=== PATIENT | male | born 1955 | race Caucasian/White ===

== ENCOUNTER 2018-10-05 14:31 | Inpatient (IN) | payer OTHER, MEDICARE ==
--- NOTE | 2018-10-05 14:41 | EDPHY ---
HPI/HX/ROS/PE/MDM Narrative: CHIEF COMPLAINT: Suspected right femur fracture HISTORY OF PRESENT ILLNESS: The patient is a 63 y/o male arriving via EMS complaining of right leg injury secondary to a fall off a ladder this afternoon. He was 3-4 steps up on a ladder when the ladder slipped. He fell towards his right side and thinks his right leg was on the outside of the ladder when his body weight hit the ladder. EMS applied a traction splint, which improved patient's pain. He did not receive any pain medications en route and reports his pain is manageable. He denies striking his head, loss of consciousness, neck or back pain, weakness, paresthesias, pelvis pain, abdominal pain, or other extremity injuries. He does not use any anticoagulants and is typically healthy. Last PO intake around 09:00 this morning. REVIEW OF SYSTEMS: A 10 point review of systems was performed and is negative with the exception of the elements mentioned in the history of present illness. Past medical history: Asthma - albuterol, Flovent Past surgical history: Noncontributory Family history: Noncontributory Social history: at bedside. Lives in [place]. Nonsmoker. No current PCP. Adult Physical: General Appearance: Alert, no acute distress. Vital signs reviewed. Head: Normocephalic atraumatic. Eyes: Pupils equal and round, no conjunctival injection, no discharge. ENT, Mouth: Mucous membranes are moist, no oropharyngeal erythema or edema. Neck: Nontender to palpation of the cervical spine in the midline. No pain with active range of motion of his neck. Respiratory: Lungs are clear to auscultation; no wheezes, rales, or rhonchi. Cardiovascular: Regular rate and rhythm; no murmur, rub, or gallop. Gastrointestinal: Abdomen is soft and non tender, no masses or organomegaly. Skin: Warm and dry, no rashes, normal color. Back: Nontender to palpation over the thoracolumbar spine. Extremities: Right leg in traction splint. Under proximal to mid femur with no obvious deformity. Two superficial lacerations to dorsum of right hand measuring 1.5cm, 0.75cm. No lower extremity edema, no calf tenderness or swelling. Pulses: Strong dorsalis pedis pulses bilaterally. Neurological: Alert and oriented. Right leg held in traction, otherwise moving all extremities easily and equally. CHIKIS. EOMI. Tongue midline. Facial expressions symmetric. 5/5 bilateral upper extremity and left lower extremity strength. Sensation intact to light touch over all 4 extremities. Psychiatric: Normal affect. ED Course: This is a healthy 63 y/o male who presents with an isolated injury to his right femur secondary to a short fall off a ladder this afternoon. He describes his right leg getting caught underneath the ladder then his body weight landing on the ladder. He is surprisingly comfortable on exam with his right leg held in traction. He is neurovascularly intact. Small superficial lacerations noted to dorsum of right hand. Plan for right femur x-ray and pain management as needed. He has declined pain medication at this time. X-ray shows proximal femur fracture. Pre-op labs, EKG, and chest x-ray ordered. 1505: Consulted with GIA Stewart for Dr. Escobar, orthopedist. She recommends admission to the hospitalist for medical clearance and Mahad hose and has no set surgical plan at this time. 1523: Consulted with hospitalist service. Patient will need to be either ortho admit or trauma admit. 1528: Consulted with Dr. Escobar, orthopedist. He will not admit patient. 1531: Consulted with Dr. Guillaume, trauma surgeon. He will admit patient if needed. 1535: Spoke with Dr. Pagan, hospitalist. He will assess patient in the ED and admit so patient can go to surgery. 1540: Pat reports they will take patient to surgery as soon as he is cleared. - Data Points Imaging Results: Imaging Impressions Femur X-Ray 10/05/18 14:40 Impression: Comminuted oblique intertrochanteric and subtrochanteric fractures of the proximal right femur. Chest X-Ray 10/05/18 15:07 Impression: 1. No acute pulmonary disease. 2. Consider chest, two views when the patient's medical condition permits. Imaging: I viewed and interpreted images myself Laboratory Results: Laboratory Results 10/05/18 15:30 10/05/18 15:30 10/05/18 10/05/18 10/05/18 15:30 15:30 15:30 WBC RBC Hgb Cancelled Hct Cancelled MCV MCH MCHC RDW Plt Count MPV Neut % (Auto) Lymph % (Auto) [place] % (Auto) Eos % (Auto) Baso % (Auto) Nucleat RBC Rel Count Absolute Neuts (auto) Absolute Lymphs (auto) Absolute Monos (auto) Absolute Eos (auto) Absolute Basos (auto) Absolute Nucleated RBC Immature Gran % Immature Gran # PT 13.9 SEC SEC (12.0-15.0) INR 1.05 (0.83-1.16) Sodium Potassium Chloride Carbon Dioxide Anion Gap BUN Creatinine Estimated GFR Glucose Calcium 25-OH Vitamin D Total 24.9 ng/mL L ng/mL (30.0-100.0) 10/05/18 10/05/18 15:30 15:30 WBC 10.91 10^3/uL H 10^3/uL (3.80-9.50) RBC 4.91 10^6/uL 10^6/uL (4.40-6.38) Hgb 15.4 g/dL g/dL (13.7-17.5) Hct 46.2 % % (40.0-51.0) MCV 94.1 fL fL (81.5-99.8) MCH 31.4 pg pg (27.9-34.1) MCHC 33.3 g/dL g/dL (32.4-36.7) RDW 12.2 % % (11.5-15.2) Plt Count 180 10^3/uL 10^3/uL (150-400) MPV 10.6 fL fL (8.7-11.7) Neut % (Auto) 81.9 % H % (39.3-74.2) Lymph % (Auto) 12.1 % L % (15.0-45.0) [place] % (Auto) 5.0 % % (4.5-13.0) Eos % (Auto) 0.5 % L % (0.6-7.6) Baso % (Auto) 0.2 % L % (0.3-1.7) Nucleat RBC Rel Count 0.0 % % (0.0-0.2) Absolute Neuts (auto) 8.93 10^3/uL H 10^3/uL (1.70-6.50) Absolute Lymphs (auto) 1.32 10^3/uL 10^3/uL (1.00-3.00) Absolute Monos (auto) 0.55 10^3/uL 10^3/uL (0.30-0.80) Absolute Eos (auto) 0.06 10^3/uL 10^3/uL (0.03-0.40) Absolute Basos (auto) 0.02 10^3/uL 10^3/uL (0.02-0.10) Absolute Nucleated RBC 0.00 10^3/uL 10^3/uL (0-0.01) Immature Gran % 0.3 % % (0.0-1.1) Immature Gran # 0.03 10^3/uL 10^3/uL (0.00-0.10) PT INR Sodium 137 mEq/L mEq/L (135-145) Potassium 4.0 mEq/L mEq/L (3.5-5.2) Chloride 108 mEq/L mEq/L (97-110) Carbon Dioxide 22 mEq/l mEq/l (22-31) Anion Gap 7 mEq/L mEq/L (6-14) BUN 19 mg/dL mg/dL (7-23) Creatinine 0.8 mg/dL mg/dL (0.7-1.3) Estimated GFR > 60 Glucose 99 mg/dL mg/dL (70-100) Calcium 8.8 mg/dL mg/dL (8.5-10.4) 25-OH Vitamin D Total Medications Given: Morphine Sulfate (Morphine) 1 - 2 mg IVP Q1HR PRN PRN Reason: Pain, Severe Unable to Take PO Stop: 10/15/18 15:34 Last Admin: 10/05/18 15:47 Dose: 2 mg Discontinued Medications Bupivacaine HCl (Sensorcaine 0.25% Sdv) Confirm Administered Dose 30 ml .ROUTE .STK-MED ONE Stop: 10/05/18 16:35 Last Admin: 10/05/18 18:37 Dose: 30 ml Chlorhexidine Gluconate (Hibiclens) Confirm Administered Dose 1 btl TP .STK-MED ONE Stop: 10/05/18 16:35 Last Admin: 10/05/18 18:38 Dose: Not Given Epinephrine HCl (Epinephrine) Confirm Administered Dose 1 mg .ROUTE .STK-MED ONE Stop: 10/05/18 16:35 Last Admin: 10/05/18 18:38 Dose: 0.1 mg Cefazolin Sodium/Dextrose (Ancef) 100 mls @ 200 mls/hr IV ONCALL ONE PRN Reason: Protocol Stop: 10/05/18 15:38 Last Admin: 10/05/18 17:52 Dose: 100 mls Midazolam HCl (Versed) 2 mg IVP ONCALL ONE Stop: 10/05/18 17:24 Last Admin: 10/05/18 17:36 Dose: 2 mg General Time Seen by Provider: 10/05/18 14:34 Initial Vital Signs: Initial Vital Signs Temperature (C) 36.6 C 10/05/18 14:39 Heart Rate 67 10/05/18 14:39 Respiratory Rate 16 10/05/18 14:39 Blood Pressure 152/96 H 10/05/18 14:39 O2 Sat (%) 98 10/05/18 14:39 O2 Delivery Mode Room Air Allergies/Adverse Reactions: Penicillins Allergy (Verified 10/05/18 15:51) Facial swelling Home Medications: Medication Instructions Recorded Albuterol [Proventil Inhaler HFA 1 - 2 puffs IH Q6HRS PRN 10/05/18 (*)] Fluticasone Hfa 110 Mcg [Flovent 2 puffs IH DAILY@1900 10/05/18 110 MCG Hfa MDI (*)] Ibuprofen [Motrin (*)] 400 - 600 mg PO BID PRN 10/05/18 Naproxen Sodium [Aleve 220 MG (*)] 220 mg PO DAILY PRN 10/05/18 Departure - Departure Disposition: [facility] In[facility] Acute Clinical Impression: Femur fracture, right Qualifiers: Encounter type: initial encounter Femur location: intertrochanteric Fracture type: closed Fracture alignment: nondisplaced Qualified Code(s): S72.144A - Nondisplaced intertrochanteric fracture of right femur, initial encounter for closed fracture Condition: Fair Report Scribed for: Adrianna Leyva Report Scribed by: Xi Sandhu Date of Report: 10/05/18 Time of Report: 14:41 Physician Review and Approval Statement: Portions of this note were transcribed by the medical claims representative. I, Dr. Adrianna Leyva, personally performed the history , physical exam, and medical decision-making; and confirmed the accuracy of the information in the transcribed note.
[2018-10-05] MEDS ORDERED: ceFAZolin 2 GM/DEXTROSE 100 ML IV ONE (15:09)
[2018-10-05] MEDS ORDERED: ONDANSETRON DISINTEGRATING 4 MG TAB PO PRN (15:35)
[2018-10-05] MEDS ORDERED: ONDANSETRON 4 MG/2 ML VIAL IVP PRN ×2 (15:35→19:54)
[2018-10-05] MEDS ORDERED: oxyCODONE IR 5 MG TAB PO PRN (15:35)
[2018-10-05] MEDS ORDERED: ACETAMINOPHEN 325 MG TAB PO PRN (15:35)
--- NOTE | 2018-10-05 15:44 | PDGENHP ---
History and Physical - Chief Complaint fall - History of Present Illness 63yo M with a history of asthma presents after fall from ladder this afternoon. He was 3-4 steps up on the ladder when the ladder slipped and fell on his right leg. He was unable to bear weight afterwards. Denies LOC, neck/back pain, or distal weakness/numbness. He is not anticoagulated. EMS arrived and applied traction splint. He did not receive any medications en route. Pain is currently manageable. Denies any recent chest pain, dyspnea on exertion, leg swelling, orthopnea, or syncopal episodes. He is otherwise healthy. In the ED, x-rays show proximal right femur fracture. Dr Escobar of orthopedic surgery was consulted. History Information - Allergies/Home Medication List Allergies/Adverse Reactions: Penicillins Allergy (Verified 10/05/18 15:51) Facial swelling Home Medications: Albuterol [Proventil Inhaler HFA (*)] 1 - 2 puffs IH Q6HRS PRN 10/05/18 [Last Taken 10/04/18] Fluticasone Hfa 110 Mcg [Flovent 110 MCG Hfa MDI (*)] 2 puffs IH DAILY@1900 11/18 [Last Taken 10/04/18] Ibuprofen [Motrin (*)] 400 - 600 mg PO BID PRN 10/05/18 [Last Taken 10/05/18 02: 30] Naproxen Sodium [Aleve 220 MG (*)] 220 mg PO DAILY PRN 10/05/18 [Last Taken 10/21] I have personally reviewed and updated: family history, medical history, social history, surgical history - Past Medical History Additional medical history: asthma - Surgical History Reports: no pertinent surgical hx - Family History Positive for: non-pertinent - Social History Smoking Status: Never smoked Alcohol Use: Rarely Drug Use: None Additional social history: Lives in [place] with who is at bedside with son Review of Systems Review of Systems: ROS: 10pt was reviewed & negative except for what was stated in HPI & below Physical Exam Physical Exam: Temp Pulse Resp BP Pulse Ox 36.6 C 67 16 152/96 H 98 10/05/18 14:39 10/05/18 14:39 10/05/18 14:39 10/05/18 14:39 10/05/18 14:39 Constitutional: no apparent distress, appears nourished, not in pain Eyes: PERRL, anicteric sclera, EOMI Ears, Nose, Mouth, Throat: moist mucous membranes, hearing normal, ears appear normal, no oral mucosal ulcers Cardiovascular: regular rate and rhythym, no murmur, rub, or gallop, No edema Respiratory: no respiratory distress, no rales or rhonchi, clear to auscultation Gastrointestinal: normoactive bowel sounds, soft, non-tender abdomen, no palpable masses Genitourinary: no bladder fullness, no bladder tenderness Skin: warm, normal color, no rashes or abrasions, no fluctuance, no induration, No mottled Musculoskeletal: other (right leg externally rotated) Neurologic: AAOx3 Psychiatric: interacting appropriately, not anxious, not encephalopathic, thought process linear Lab Data & Imaging Review 10/05/18 15:30 10/05/18 15:30 Visualized and Interpreted imaging results: Yes Interpretation: Right femur x-ray: proximal femur fracture (interp by me) Assessment & Plan Assessment: 63yo M with a history of asthma presents after fall from ladder this afternoon found to have right femur fracture. Plan: 1. Right femur fracture - Dr Wills of orthopedic surgery has been consulted, planning on ORIF this evening - Pain management: APAP, oxycodone, morphine PRN with bowel regimen - PT/OT after surgery - Will check vitamin D level 2. Medical clearance: RCRI score of 0 indicating low risk (3.9%) of major cardiac event. Pre-op ECG within normal limits. - No further cardiopulmonary risk stratification warranted - There are no other active medical issues that would preclude him from surgical intervention 3. Asthma: Not exacerbated - Continue home inhalers VTE ppx: SCDs. High risk of DVT, start pharmacologic ppx with Lovenox once cleared by surgery team Diet: NPO Code: full Dispo: Admit as inpatient
[2018-10-05] MEDS ORDERED: MAGNESIUM HYDROXIDE 30 ML UDCUP PO PRN (15:49)
[2018-10-05] MEDS ORDERED: POLYETHYLENE GLYCOL 3350 17 GM PKT PO PRN (15:49)
[2018-10-05 15:54] LABS: PLATELET COUNT 180 10^3/uL (150-400)
[2018-10-05] MEDS ORDERED: ALBUTEROL IH PRN (15:58)
--- NOTE | 2018-10-05 16:01 | PDCONSULT ---
<Maria Luz Matthews S - Last Filed: 10/05/18 23:14> [employer] Note: CHIEF COMPLAINT: Right hip fracture SUPERVISING PHYSICIAN: Dr. Jermaine Escobar. HISTORY OF PRESENT ILLNESS: The patient is a 63 y/o RHD male who arrived via EMS complaining of right leg injury secondary to a fall off a ladder this afternoon. He was 3-4 steps up on a ladder when the ladder slipped. He fell towards his right side and thinks his right leg was on the outside of the ladder when his body weight hit the ladder. EMS applied a traction splint, which improved patient's pain, but I have now taken down in preparation for right hip ORIF. His pain is being controlled well in ED at this time and he is able to respond appropriately to questions and command. Denies h/o previous injury, numbness/tingling, worsening pain, skin breakthrough, change in heat/ color of extremity or around hip, cramping in his calves or ankles. He denies striking his head, loss of consciousness, neck or back pain, pelvis pain, abdominal pain, or other extremity injuries. He does not use any anticoagulants regularly and denies h/o blood clots, bleeding disorders or VT. NPO: 09:00 on 10/05/2018. POA: Self. FULL CODE. REVIEW OF SYSTEMS: A 10 point review of systems was performed and is negative with the exception of the elements mentioned in the history of present illness. MEDICAL HISTORY: Asthma. PAST SURGICAL HISTORY: None. FAMILY HISTORY: Denies h/o blood clots, bleeding disorders, CVD, cancer. SOCIAL HISTORY: at bedside. Lives in [place]. Nonsmoker, rare EtOH. No current PCP. ALLERGIES: Penicillins Allergy (Verified 10/05/18 14:45) MEDICATIONS: Flovent, Ventolin. PHYSICAL EXAMINATION: GENERAL: No acute distress, cooperative, and pleasant. Able to respond appropriately to questions and commands. HEENT: NC/AT. EOMI. PERRLA. Ears and nares patent without discharge. Oropharynx clear. NECK: NTTP, FROM, supple. Negative Lhermitte's and Spurling's. No lymphadenopathy. CV: Non-labored breathing, no diaphoresis. SPINE: NTTP throughout and negative pelvis squeeze test. MUSCULOSKELETAL: Focalized exam of b/l lower extremities: Unable to bear weight to RLE. Leg is externally rotated for comfort. Skin intact throughout; all compartments soft. TTP over right hip otherwise NTTP throughout. Limited ROM of right hip secondary to severe pain to patient. FROM distally with 5/5 strength present distally. Calves soft/supple and NTTP b/l with negative b/l Homans. Brisk cap refill b/l. Negative passive stretch b/l. DNVI b/l with no focal deficits noted. Negative pelvic squeeze test. SCDs and JASON hose not yet present to patient. SKIN: Please see dictation above. No other ecchymosis, erythema, calor, or edema. No other rashes or lesions. NEUROLOGIC: Nonfocal. No deficits. C5 - T1 and L2 - S1 intact. DTRs 2+ x 4 exts with symmetry. No clonus. SECONDARY SURVEY: Negative except for as stated above. IMAGIN views of right hip show a minimally displaced subtrochanteric hip fracture. Initial Vital Signs: Temperature (C) 36.6 C 10/05/18 14:39 Heart Rate 67 10/05/18 14:39 Respiratory Rate 16 10/05/18 14:39 Blood Pressure 152/96 H 10/05/18 14:39 O2 Sat (%) 98 10/05/18 14:39 O2 Delivery Mode Room Air ASSESSMENT/PLAN: At this time patients physical exam findings and imaging were explained at length to him and his family. At this time recommend emergent ORIF of right hip. Informed consent will be obtained by Dr. Jermaine Escobar. NWB. Placed out of traction. Knee high JASON hose and SCDs as well as IS. Will follow reccs per IM regarding chemoprophylaxis post-operatively. Will schedule surgery for earliest convenience pending clearance from IM. Advised to watch for worsening pain, abnormal numbness, tingling, change in heat /color of extremity, worsening change in ROM or strength, cramping in his calves /ankles, cough, congestion, chest pain, dyspnea, SOB and to seek immediate medical attention. Patient seen/discussed in conjunction with Dr. Escobar. <Jermaine Escobar - Last Filed: 10/06/18 10:26> [employer] Note: History and physical exam performed independently by me, in addition to my PA. See note above. Mr Flannery unfortunately has a traumatic, closed R proximal femur fracture, pertrochanteric with significant subtrochanteric and intertrochanteric extension, highly unstable and displaced. We will proceed to the OR as expeditiously as possible for ORIF and long Gamma nail placement. The R/B/A have been discussed and all questions have been answered. The complexity of this fracture pattern has been explained to patient and family. A signed and witnessed informed consent has been obtained by me.
[2018-10-05 16:25] LABS: INR 1.05 (0.83-1.16); PROTIME(PATIENT) 13.9 SEC (12.0-15.0)
[2018-10-05] MEDS ORDERED: CHLORHEXIDINE GLUC HIBICLENS 118 ML BTL TP ONE (16:34)
[2018-10-05] MEDS ORDERED: EPINEPHrine 1 MG/ML INJ ONE (16:34)
[2018-10-05] MEDS ORDERED: BUPIVACAINE 0.25% 30 ML SDV ONE (16:34)
--- NOTE | 2018-10-05 17:22 | PDANEPAE ---
ANE History of Present Illness Right hip fracture ANE Past Medical History - Cardiovascular History Hx Hypertension: No Hx Arrhythmias: No Hx Coronary Artery / Peripheral Vascular Disease: No - Pulmonary History Hx Asthma/Reactive Airway Disease: Yes Hx Sleep Apnea: No - Endocrine History Hx Diabetes: No ANE Review of Systems Review of Systems: ANE Patient History - Allergies Allergies/Adverse Reactions: Penicillins Allergy (Verified 10/05/18 15:51) Facial swelling - Home Medications Home medications: home medication list seen and reviewed Home Medications: Albuterol [Proventil Inhaler HFA (*)] 1 - 2 puffs IH Q6HRS PRN 10/05/18 [Last Taken 10/04/18] Fluticasone Hfa 110 Mcg [Flovent 110 MCG Hfa MDI (*)] 2 puffs IH DAILY@1900 11/18 [Last Taken 10/04/18] Ibuprofen [Motrin (*)] 400 - 600 mg PO BID PRN 10/05/18 [Last Taken 10/05/18 02: 30] Naproxen Sodium [Aleve 220 MG (*)] 220 mg PO DAILY PRN 10/05/18 [Last Taken 10/21] - NPO status NPO Status: no food or drink >8 hours NPO Since - Liquids (Date): 10/05/18 NPO Since - Liquids (Time): 09:00 NPO Since - Solids (Date): 10/05/18 NPO Since - Solids (Time): 09:00 - Anes Hx Anes Hx: no prior problems (Only [place] as child) - Smoking Hx Smoking Status: Never smoked - Alcohol Use Alcohol Use: Rarely ANE Labs/Vital Signs - Labs Result Diagrams: 10/05/18 15:30 10/05/18 15:30 - Vital Signs Blood Pressure: 136/77 Heart Rate: 63 Respiratory Rate: 16 O2 Sat (%): 94 Height: 187.96 cm Weight: 99.79 kg ANE Physical Exam - Airway Neck exam: FROM Mallampati Score: Class 2 Mouth exam: normal dental/mouth exam - Pulmonary Pulmonary: no respiratory distress - Cardiovascular Cardiovascular: regular rate and rhythym - ASA Status ASA Status: II, E ANE Anesthesia Plan Anesthesia Plan: general endotracheal anesthesia
[2018-10-05] MEDS ORDERED: MIDAZOLAM 2 MG/2 ML VIAL IVP ONE (17:23)
[2018-10-05] MEDS ORDERED: MIDAZOLAM 2 MG/2 ML VIAL ONE (17:25)
[2018-10-05] MEDS ORDERED: ROCURONIUM 50 MG/5 ML VIAL ONE ×3 (17:37→19:22)
[2018-10-05] MEDS ORDERED: fentaNYL 100 MCG/2 ML INJ ONE ×3 (17:38→21:25)
[2018-10-05] MEDS ORDERED: PROPOFOL 200 MG/20 ML VIAL ONE (17:38)
[2018-10-05] MEDS ORDERED: LIDOCAINE 2% 5 ML SDV ONE (17:38)
[2018-10-05] MEDS ORDERED: PHENYLEPHRINE HCL 100 MCG/ML SYR ONE ×2 (18:00→19:31)
[2018-10-05] MEDS ORDERED: GLYCOPYRROLATE 0.2 MG/1 ML VIAL ONE (18:06)
[2018-10-05] MEDS ORDERED: DEXAMETHASONE 4 MG/ML VIAL ONE (18:06)
[2018-10-05] MEDS ORDERED: fentaNYL 100 MCG/2 ML INJ IVP PRN (19:54)
[2018-10-05] MEDS ORDERED: NALOXONE HCL 0.4 MG/ML INJ IVP PRN (19:54)
[2018-10-05] MEDS ORDERED: PROMETHAZINE HCL 25 MG/ML INJ IVP PRN ×2 (19:54→22:31)
--- NOTE | 2018-10-05 21:00 | CPEKG ---
Test Reason : OPEN Blood Pressure : / mmHG Vent. Rate : 070 BPM Atrial Rate : 070 BPM P-R Int : 190 ms QRS Dur : 097 ms QT Int : 418 ms P-R-T Axes : 062 081 037 degrees QTc Int : 452 ms Sinus rhythm Atrial premature complex Borderline right axis deviation Confirmed by Charissa Enriquez ([id number]) on 10/05/2018 8:59:46 PM Referred By: CHARISSA ENRIQUEZ Confirmed By:Charissa Enriquez
[2018-10-05] MEDS ORDERED: ONDANSETRON 4 MG/2 ML VIAL ONE (21:08)
[2018-10-05] MEDS ORDERED: SUGAMMADEX SODIUM 200 MG/2 ML VIAL IVP ONE (21:48)
--- NOTE | 2018-10-05 22:09 | POSTANESTH ---
Post Anesthetic Evaluation Cardiovascular Status: Similar to Pre-Op Cond Respiratory Status: Similar to Pre-op Cond. Level of Consciousness/Mental Status: Alert and Oriented, Mildly Sleepy, Arousable Pain Control: Adequate, Prn Tx Ordered Nausea/Vomiting Control: Adequate, Prn Tx Ordered Complications Possibly Related to Anesthesia: None Noted
[2018-10-05] MEDS ORDERED: HYDROmorphONE/DILAUDID 2 MG/ML INJ ONE (22:26)
[2018-10-05] MEDS: HYDROmorphONE/DILAUDID 2 MG/ML INJ IVP PRN ×2 (22:28→22:36)
[2018-10-05] MEDS ORDERED: diphenhydrAMINE 25 MG CAP PO PRN (22:31)
[2018-10-05] MEDS ORDERED: DIPHENOXYLATE/ATROPINE LOMOTIL 1 TAB PO PRN (22:31)
[2018-10-05] MEDS ORDERED: TEMAZEPAM 15 MG CAP PO PRN (22:31)
[2018-10-05] MEDS ORDERED: METOCLOPRAMIDE 10 MG/2 ML VIAL IVP PRN (22:31)
--- NOTE | 2018-10-05 22:37 | POSTOPPROG ---
Post Op Note Date of Operation: 10/05/18 Surgeon: Jermaine Escobar Product Safety Tester: MILTON Stallworth Anesthesiologist: Dr. Baker Anesthesia: GET(General Endotracheal) Pre-op Diagnosis: Right femur subtrochanteric hip fracture Post-op Diagnosis: Right femur subtrochanteric hip fracture Indication: Right femur subtrochanteric hip fracture Procedure: Right hip gamma nail Findings: Right femur subtrochanteric hip fracture Inf/Abcess present in the surg proc area at time of surgery?: No Depth: Deep Incisional (Fascial) EBL: 100-500 Complications: None.
[2018-10-05] MEDS ORDERED: LR 1,000 ML IV SCH (23:00)
[2018-10-06] MEDS: FLUTICASONE HFA 110 MCG MDI IH SCH ×2 (01:06→19:42)
[2018-10-06] MEDS: ceFAZolin 2 GM/DEXTROSE 100 ML IV SCH ×2 (02:07→11:19)
[2018-10-06 04:54] LABS: PLATELET COUNT 145 10^3/uL (150-400)
--- NOTE | 2018-10-06 06:20 | GOP ---
[f rep st] OPERATIVE REPORT DATE OF OPERATION: 10/05/2018 SURGEON: Jermaine Escobar MD [employer] OPERATOR: Maria Luz Matthews PA-C. ANESTHESIA: General ANESTHESIOLOGIST: Dr. Baker. PREOPERATIVE DIAGNOSIS: Closed right proximal femur, comminuted high-energy and unstable fracture, p ertrochanteric with subtrochanteric and intertrochanteric extension. POSTOPERATIVE DIAGNOSIS: Closed right proximal femur, comminuted high-energy and unstable fracture, pertrochanteric with subtrochanteric and intertrochanteric extension. PROCEDURE PERFORMED: Open reduction, internal fixation of right proximal femur fractures with long g anaya nail. FINDINGS: Highly unstable and segmental right proximal femur fracture, pertrochanteric hip fracture with intertrochanteric and subtrochanteric extension and segmental fracture morphology. Bone quality was without any signs of osteopenia or osteoporosis. ESTIMATED BLOOD LOSS: 300 cc. INDICATIONS: The patient is a 63-year-old male who suffered a fall from a ladder earlier today. He was brought into [facility] after severe pain and his inability to bear weight at home at the site of [facility] ur. The patient was found to have a right proximal femur fracture as listed above. He was seen by Medicine and cleared for surgery. The risks, benefits, and alternatives were discussed with the jing ent. All of his questions were answered prior to surgery. He provided a signed witnessed informed c onsent which was placed in his chart. Please see history and physical for additional information. DESCRIPTION OF PROCEDURE: The patient was identified in the preoperative holding area and his right hip was signed as the operative site. The patient was confirmed and left lower extremity SCDs. He w as taken back to the operating room, intubated on the gurney. He was then transferred over to the fr acture table with great care taken to protect the right hip. Standard well-padded peroneal post was placed between the legs. Right upper extremity was tucked across his chest. Left upper extremity wa s placed in a well-padded arm board. Abundant padding was placed around the right elbow and wrist to protect the ulnar nerve as well as peripheral nerves throughout the wrist. Both lower extremities w ere positioned with the standard fracture table using the foam padded boots. Left lower extremity wa s scissored approximately 15 degrees hip extension and right hip was flexed approximately 15 degrees. Right thigh was then prepped and draped in the usual sterile manner. Large C-arm was utilized duri ng the surgery which was all sterilely prepped and draped for the surgery. Initial focus was on multiple attempts at achieving an appropriate reduction simply with the fracture table using traction and rotation of the lower extremity. A crutch was utilized in order to attempt to reduce the significantly posteriorly displaced proximal femur. This was displaced greater than 1 00% posteriorly. There was a large segmental piece along the lateral cortex at the proximal femur th at was also fractured and displaced. There was additional fracture extension up into the intertrocha nteric area causing the fracture to be highly unstable. Reduction was not possible with closed means . As a result, a lateral incision was made after anesthetizing the skin with 0.25% Marcaine with epi nephrine. A full-thickness dermal incision was made over a length of approximately 10 cm and careful ly dissection was taken down through the subcutaneous fat. The IT band was identified and divided in parallel with its fibers. The vastus lateralis fascia was divided and then the muscle was swept ant eriorly and posteriorly in order to access the lateral femoral cortex. With my finger through a smal l window I was able to palpate the fracture and better understand the displacement. The proximal fem ur shaft was displaced posteriorly and medially with rotation. The lateral segmental piece was displ aced laterally. The intertrochanteric and neck portion was displaced anteriorly. Given the above, p rovisional fixation was achieved with placement of Mayo as well as a Verbrugge clamp and turkey-claw type clamp. Once an acceptable reduction was achieved, which was extremely difficult, the nailing po rtion of the case was performed. Great care was taken to limit any unnecessary stripping of bone and instead the Mayo and clamps were placed through and around the muscle as well as possible to avoid s oft tissue stripping. With meticulous care to maintain the reduction with the provisional tools, my metal moulder's assistant was essential for holding the reduction as I performed the nailing portion of the case. A 4 cm incision was placed proximal to the greater trochanter. Again, full-thickness dermal incision was made after anesthetizing the skin. Careful dissection was taken down through the subcutaneous f at. The tip of the greater trochanter was palpated and a small incision in the fascia over the troch anter was utilized in order to place a guidewire. The guidewire was placed in the appropriate center ed position at the tip of the greater trochanter and advanced down centrally within the femoral canal across the fracture site and down beyond the subtroch fracture extension. Once this was in place, jose bartholomew one-step reamer from the [place] Gamma nail was used to open up the proximal portal for the nail. After the proximal femoral canal was opened, a standard ball-tip guidewire was placed down within th e intramedullary canal across the fracture site and down to the distal femoral metaphysis in a center ed position. Measurement was taken and 420 mm was the appropriate length for this patient. Reaming was performed over the guidewire up to a size 13. An 11 x 420 mm nail with 130 degree neck angle was then selected as the appropriate nail for the patient. This was placed over the guidewire and malleted down into the appropriate position and rotation. The guidewire was then removed. The compression screw portio n of the nail was then performed. The lateral guide was placed down on bone, i.e., lateral femoral cortex. The prior incision used for reduction was appropriate for placing this compression screw. The guidewire was then advanced up ac ross the fracture site and centered through the neck and femoral head. This was advanced to the appr opriate depth. This was then over drilled to a length of 110 mm. A 10.5 mm x 110 mm compression scr ew was then placed over the guidewire and screwed down to the appropriate depth. Tip apex distance w as appropriate. A set screw was then placed, locking the compression screw in rotation and given the highly complex and unstable nature of the fracture, I held the compression screw in a static positio n. The jig and cannulas were then removed from the nail proximally. Finalized images were taken wit h the large C-arm to confirm appropriate reduction as well as placement of all hardware. Once this w as completed, the distal interlock was performed using standard perfect [place] technique. A 5 x 45 m m dynamic distal femoral locking screw was placed down the metadiaphysis of the femur. Again, in thi s case and location a small 7 or 8 mm incision was made. Careful spreading down to bone was utilized with mosquito clamp. The screw was placed without difficulty. Finalized images were taken througho ut to confirm maintenance of reduction as well as location of the hardware. Images were taken withou t traction to confirm again appropriate alignment. The wounds were then copiously irrigated with perfecto rile saline and closure was begun. The deep fascial layer including the IT band was closed with multiple interrupted #1 Ethibond sutures . The fat space of both of the proximal incisions were closed with 2-0 Vicryl sutures. 2-0 Vicryl s utures were used to close the deep dermal layer at all incisions. Abraham were used to formally clos e the skin. Sterile postop surgical dressings were applied. The patient was taken out of all positi oning devices on the fracture table. He was then extubated on his gurney and transferred to the PACU in stable condition. TOURNIQUET TIME: None. DRAINS: None. IMPLANTS: Ricky long right gamma nail, 130 degree neck angle, 11 x 420 mm. A 10.5 x 110 mm compre ssion screw. A 5 x 45 mm distal locking screw. The distal locking screw was placed in a dynamic pos ition. The compression screw was compressed with the implant and jig and then once this was compress ed appropriately, it was set in a static position using standard gamma nail technique. COMPLICATIONS: None. DISPOSITION: The patient was extubated and transferred to PACU in stable condition. /[id number]/MODL
[2018-10-06] MEDS: SENNOSIDES/DOCUSATE SODIUM TAB PO SCH ×3 (08:25→19:54)
--- NOTE | 2018-10-06 09:11 | SOAPPROG ---
SOAP Progress Note Assessment/Plan: Assessment/Plan: POD #1 Right hip gamma nail. TDWB to RLE. Rest, ice to RLE. Maintain dry dressings. Do not change w/o discuss with our office first. Continue to reinforce and maintain dry dressing as needed. Up with PT/OT with following precautions: TDWB to RLE. DVT Prophylaxis: Chemoprophylaxis of Lovenox 40mg SQ x 14 days per reccs from hospitalists. JASON patel. SCDs. IS. Continue 24 hrs or prophylactic abx as ordered. Pain Control: Per hospitalist reccs. Will place Tylenol order. Dispo: Can D/C once cleared by CM, hospitalists, PT/OT and meeting floor requirements. F/U in clinic 7-10 days post-operatively to maintain close follow-up and for repeat radiographs. Can schedule with our office for Dr. Escobar at . No smoking or NSAIDs as this may impair fracture healing. Advised to watch abnormal numbness/tingling, worsening change in heat/color of extremity, worsening change in distal ROM or strength, fever, chills, cramping in her calves or ankles and to seek immediate medical attention if seen. Patient/plan discussed and agreed upon with Dr. Escobar. 10/06/18 09:11 Subjective: Alone in room, patient able to respond appropriately to questions/commands. Sitting up in chair; eating breakfast. Has been up with PT/OT. Has been compliant in TDWB. Dry dressing is intact. Denies abnormal numbness/tingling, worsening change in pain, worsening change in heat/color of extremity, worsening change in distal ROM or strength, cramping in his calves or ankles, cough, congestion, chest pain, SOB, dyspnea. Is eating and drinking well. Pain well controlled during my visit today. Objective: Vital Signs Temp Pulse Resp BP Pulse Ox 36.8 C 80 14 111/67 90 L 10/06/18 08:00 10/06/18 08:00 10/06/18 08:00 10/06/18 08:00 10/06/18 08:00 Laboratory Results 10/06/18 04:23 10/05/18 10/06/18 10/07/18 05:59 05:59 05:59 Intake Total 4680 Output Total 1335 500 Balance 3345 -500 PT 13.9 SEC (12.0-15.0) 10/05/18 15:30 INR 1.05 (0.83-1.16) 10/05/18 15:30 AO, NAD, non-labored breathing, no diaphoresis. Afebrile. MS: RLE with hip wound well healing, dressing in place and intact, no abnormal bleeding/oozing/discharge noted around wound sites or on dressing. Mild edema noted to right femur with all compartments soft. FROM distally with 5/5 strength present in right foot/ankle. Able to wiggle toes without difficulty. Negative passive stretch b/l. DNVI b/l in BLLE with no focal deficits. Calves soft/supple and NTTP b/l with negative Homans and JASON hose on and SCDs pumping. Brisk cap refill b/l. Radiographs: 2 views of right hip shows hardware and fracture in good position/ alignment. - Pending Discharge Pending Discharge Within 48 Hours: Yes Pending Discharge Date: 10/08/18 Pending Discharge Time: 11:00 ICD10 Worksheet Patient Problems: Problems Problem Status Onset Femur fracture, right Acute
--- NOTE | 2018-10-06 11:07 | PDMN ---
Medical Necessity Medical necessity: [facility] S470 Femur Fracture, Shaft, Internal Fixation, 2 days: 63 yo w/ femur fx, s/p ORIF R proximal femur fx w/ long gamma nail, IP only. Change to IP status @1032
[2018-10-06] MEDS: CYCLOBENZAPRINE 10 MG TAB PO PRN ×2 (11:31→19:54)
--- NOTE | 2018-10-06 14:55 | ASMTCMCOM ---
CM Note CM Note Notes: Pt had surgery for femur fx after a fall off ladder. Today PT rec home/outpatient, OT rec HHC/home. Pt has no PCP, CM to get him a list of local PCPs per pt request. Cm to follow. Date Signed: 10/06/2018 02:55 PM Electronically Signed By:NILS Barger
[2018-10-06] MEDS: oxyCODONE IR 5 MG TAB PO PRN (15:01)
--- NOTE | 2018-10-06 15:13 | HOSPPROG ---
Hospitalist Progress Note Assessment/Plan: 63yo M with a history of asthma presents after fall from ladder this afternoon found to have right femur fracture. First encounter, chart reviewed. 1. Right femur fracture - Dr Wills of orthopedic surgery has been consulted,POD #1 - Pain management: APAP, oxycodone, morphine PRN with bowel regimen - PT/OT - Will check vitamin D level 2. Medical clearance: - RCRI score of 0 indicating low risk (3.9%) of major cardiac event. Pre-op ECG within normal limits. - No further cardiopulmonary risk stratification warranted - There are no other active medical issues that would preclude him from surgical intervention 3. Asthma: - Not exacerbated - Continue home inhalers VTE ppx: SCDs. High risk of DVT, start pharmacologic ppx with Lovenox once cleared by surgery team Diet: regular Code: full Dispo: Admit as inpatient Subjective: Up in the chair. Some pain. No other complaints. Objective: Vital Signs Temp Pulse Resp BP Pulse Ox 37.1 C 84 14 123/71 H 94 10/06/18 11:55 10/06/18 11:55 10/06/18 11:55 10/06/18 11:55 10/06/18 11:55 Laboratory Results 10/06/18 04:23 10/05/18 10/06/18 10/07/18 05:59 05:59 05:59 Intake Total 4680 500 Output Total 1335 1500 Balance 3345 -1000 PT 13.9 SEC (12.0-15.0) 10/05/18 15:30 INR 1.05 (0.83-1.16) 10/05/18 15:30 - Physical Exam Constitutional: no apparent distress, appears nourished, uncomfortable Eyes: PERRL, anicteric sclera, EOMI Ears, Nose, Mouth, Throat: moist mucous membranes, hearing normal, ears appear normal Cardiovascular: regular rate and rhythym, No JVD, No edema Respiratory: no respiratory distress, no rales or rhonchi, reduced air movement Gastrointestinal: normoactive bowel sounds, No tenderness, No ascites Skin: warm, normal color, No mottled Musculoskeletal: joint tenderness, pain with ROM, generalized weakness Neurologic: AAOx3 Psychiatric: interacting appropriately, not anxious, not encephalopathic ICD10 Worksheet Patient Problems: Problems Problem Status Onset Femur fracture, right Acute
[2018-10-06] MEDS: ENOXAPARIN 40 MG/0.4 ML SYR SC SCH (17:52)
[2018-10-07] MEDS: oxyCODONE IR 5 MG TAB PO PRN ×4 (01:06→15:51)
[2018-10-07] MEDS: SENNOSIDES/DOCUSATE SODIUM TAB PO SCH (08:24)
[2018-10-07] MEDS ORDERED: CHOLECALCIFEROL VIT D3 1,000 UNITS TAB PO SCH (09:00)
[2018-10-07 11:36] VITALS: BP 120/67
--- NOTE | 2018-10-07 13:22 | PDIAF ---
- Diagnosis Diagnosis: Femur fx Code Status: Full Code - Medication Management Discharge Medications: electronically signed and located in the Home Medication List. PICC Care - Routine: N/A - Orders Services needed: Home Care, Physical Therapy Home Care Face to Face: I certify that this patient was under my care and that I had the required [id number]-[id number] encounter meeting the encounter requirements on the discharge day. My findings support the fact that the patient is homebound as defined in Home Care Face to Face Continued: CMS Chapter 7 Medicare Benefits Manual 30.1.1 , The condition of the patient is such that there exists a normal inability to leave home and consequently, leaving home would require a considerable and taxing effort. Additional Instructions: Regarding Orthopedic Instructions ([facility]): Dr. Jermaine Escobar Maintain touch down weight bearing status to your right hip with use of crutches and exercises shown by physical therapy. Rest, ice to injury site as needed for comfort. Maintain dry dressings. Do not change without discussion with our office first. Maintain exercises shown by PT/OT with use of safe ambulation techniques. DVT Prophylaxis: Continue Rx of Lovenox 40mg for total of 14 days as prescribed by hospitalists. Continue JSAON hose for 14 days. Follow up in clinic in 7-10 days post-operatively to maintain close follow-up and for repeat radiographs. Can schedule with our office for Dr. Escobar at [phone]. Please do not smoke and please no NSAIDs as this may impair fracture healing. Advised to watch abnormal numbness/tingling, worsening change in heat/color of extremity, worsening change in range of motion or strength, fever, chills, cramping in your calves or ankles, cough, congestion, chest pain, shortness of breath and seek immediate medical attention if seen. - Follow Up Care Current Providers and Referrals: Jermaine Escobar MD [Medical Doctor] - Patient,NotPresent [Unknown] - As per Instructions
--- NOTE | 2018-10-07 13:44 | GDS ---
[f rep st] DISCHARGE SUMMARY DISCHARGE DIAGNOSES: 1. Right femur fracture. 2. Mechanical fall. 3. Asthma. CONSULTATIONS: Dr. Escobar of Orthopedics. STUDIES AND PROCEDURES DONE: Surgical intervention of his right femur. PHYSICAL EXAM: GENERAL: The patient is alert. VITAL SIGNS: Afebrile at 37.2. Pulse is 88. Respi ratory rate is 18. Blood pressure is 120/67. He is saturating 94% on room. I have seen and evaluat ed the patient on the day of discharge. HOSPITAL COURSE: This is a 63-year-old male who suffered a mechanical fall from a ladder and present ed with complaints of right leg pain. He was evaluated and diagnosed with: 1. Right femur fracture. During this hospitalization, he had surgical intervention from Dr. Nenita eduardo. He will have home health care and be discharged home with appropriate pain medication and support millie care. 2. Vitamin D deficiency. The patient will be initiated on vitamin D at the time of disposition. 3. History of asthma. The patient tells me he uses his rescue inhaler once to twice a day as well a s his regularly-prescribed Flovent. I have discussed this with him, and he will establish care with a primary care physician to have his medications adjusted in the outpatient setting as he is using hi s rescue inhaler more than recommended. DISCHARGE MEDICATIONS: Please refer to EMR form. I provided the patient prescriptions for Flexeril, oxycodone IR, Lovenox. I have not discontinued any of his previously-prescribed home medications. There are no pending studies. FOLLOWUP: Will be with Dr. Escobar as directed. Please refer to directions. He will also establis h care with a primary care physician and follow up regarding his asthma medication. I spent greater than 35 minutes in the care, coordination, and management of this patient's dispositi on. /[id number]/MODL
--- NOTE | 2018-10-07 14:40 | ASMTLACE ---
JESSICAE Length of stay for Answers: 3 days current admission Acuity / Level of Answers: Yes Care: Did the patient have an inpatient admission? # of Emergency department Answers: 1-2 visits in the last 6 months Score: 7 Date Signed: 10/07/2018 02:40 PM Electronically Signed By:NILS Barger
--- NOTE | 2018-10-07 14:42 | ASMTCMCOM ---
CM Note CM Note Notes: Pt medically stable for d/c with family support and [facility]. Orders sent in All[employer]. Pt has obtained DME. Date Signed: 10/07/2018 02:42 PM Electronically Signed By:NILS Barger
--- NOTE | 2018-10-07 14:46 | SOAPPROG ---
SOAP Progress Note Assessment/Plan: Assessment:Pt. is POD#2 s/p right gamma nail fixation of a right hip subtrochanteric fracture. Feels ready to be discharged today, insure of weather he will go to a rehab facility or home. Will be discussing with his family this afternoon. Plan: Follow up with Dr. Escobar 8-10 days from now. Call [phone] as entered in your discharge instructions to schedule this appt. Keep your dressing clean and dry. Notify us of any discharge, surrounding redness, swelling, fevers greater than 100.4, increased pain in the hip, calf pain, redness, warmth or swelling. Continue to ice, WBAT with your walker, Continue PT. Continue your pain medications as provided to you upon discharge. S: Pt. has no pain at rest, is uncomfortable with movement and during PT. He has had no OTOOLE, SOB, CP, N/T of the extremities, calf pain, weakness of the ankles. O: Pt. calm cooperative, resting comfortably in NAD. Respirations easy and unlabored. Exam of the right leg reveals a clean, intact dry dressing over his incisions. Distally he has no calf pain to palpate bilaterally, negative Brandt' s bilaterally, his sensation is intact to BLE's equally, strength with dorsi and plantar flexion resisted is equal and full. Pedal pulses are brisk bilaterally. 10/07/18 14:38 Objective: Vital Signs Temp Pulse Resp BP Pulse Ox 37.2 C 88 18 120/67 94 10/07/18 11:35 10/07/18 11:35 10/07/18 11:35 10/07/18 11:35 10/07/18 11:35 Laboratory Results 10/07/18 04:29 10/06/18 10/07/18 10/08/18 05:59 05:59 05:59 Intake Total 4680 1350 500 Output Total 1335 3400 375 Balance 3345 -2050 125 PT 13.9 SEC (12.0-15.0) 10/05/18 15:30 INR 1.05 (0.83-1.16) 10/05/18 15:30 ICD10 Worksheet Patient Problems: Problems Problem Status Onset Femur fracture, right Acute
[2018-10-07] MEDS: ENOXAPARIN 40 MG/0.4 ML SYR SC SCH (15:52)
--- NOTE | 2018-10-08 15:10 | ASDISCHSUM ---
Discharge Information Plan Status:Home with Home Health Medically Cleared to Leave: Discharge Date:10/07/2018 05:07 PM CM D/C Disposition: ADT D/C Disposition:Home, Routine, Self-Care Projected Discharge Date:10/07/2018 11:00 AM Transportation at D/C: Discharge Delay Reason: Follow-Up Date:10/07/2018 11:00 AM Discharge Slot: Final Diagnosis: Placement Information Referral Type:*Home Health Care Services Referral ID:[id number] Provider Name:[facility] Address 1:[address] [place] [address] Address 2: City:[place] Selection Factors: State:[place] Patient Contact Information Contact Name:JESUSITA Relationship: Address:[address] Work Phone: [facility]:[place] Alternate Phone: [facility]/Zip Code:[place] [address] Email: Financial Information Financial Class:Medicare Primary Plan Desc:MEDICARE INPATIENT Primary Plan Number:[id number] Secondary Plan Desc:[employer]/MDR SUPPLEMENT Secondary Plan Number:[id number] Assessment Information LACE LACE Length of stay for Answers: 3 days current admission Acuity / Level of Answers: Yes Care: Did the patient have an inpatient admission? # of Emergency department Answers: 1-2 visits in the last 6 months Score: 7 Date Signed: 10/07/2018 02:40 PM Electronically Signed By:NILS Barger [facility] JAGJIT Progress Note CM Note CM Note Notes: Pt had surgery for femur fx after a fall off ladder. Today PT rec home/outpatient, OT rec HHC/home. Pt has no PCP, JAGJIT to get him a list of local PCPs per pt request. Cm to follow. Date Signed: 10/06/2018 02:55 PM Electronically Signed By:NILS Barger [facility] CM Progress Note CM Note CM Note Notes: Pt medically stable for d/c with family support and [facility]. Orders sent in Allscripts. Pt has obtained DME. Date Signed: 10/07/2018 02:42 PM Electronically Signed By:NILS Barger Intervention Information
== END 2018-10-07 17:07 | disposition home health service (06) | DRG 482 ==
LOC: EDAGE → EDUNIT# → F3N 23:01
PROVIDERS: ADMIT Internal Medicine; ATTEND Internal Medicine
PROC: 0QS604Z Reposition Right Upper Femur with Internal Fixation Device, Open Approach (ICD-10-PCS; principal; 2018-10-05 17:00)
DX: S72.141A Displaced intertrochanteric fracture of right femur, initial encounter for closed fracture (principal); S72.21XA Displaced subtrochanteric fracture of right femur, initial encounter for closed fracture; W11.XXXA Fall on and from ladder, initial encounter; Y92.015 Private garage of single-family (private) house as the place of occurrence of the external cause; E55.9 Vitamin D deficiency, unspecified; J45.909 Unspecified asthma, uncomplicated; Z88.0 Allergy status to penicillin
CPT/HCPCS: 96365; 97116-GP; 97161-GP; 97166-GO; 97530-GO; 97535-GO; C1713; G0378; J0171; J0690; J1100; J1170; J1650; J2250; J2270; J2370; J2405; J2704; J3010